=== PATIENT | male | born 1950 | race Caucasian/White ===

== ENCOUNTER 2020-11-11 12:46 | Emergency (ER) | payer BC, SELFPAY ==
--- NOTE | ~2020-11-11 | XR_ITS ---
XR chest 2V DATE: 11/11/2020 14:01 INDICATION: Fever, onset 2 days ago. TECHNIQUE: PA and lateral views COMPARISON: None FINDINGS: Normal heart size. No hilar or mediastinal enlargement. The lungs are moderately hyperinfla lars but clear of infiltrate or consolidation. No pleural effusion or pulmonary vascular congestion or pneumothorax. Included skeletal structures are unremarkable. IMPRESSION: Moderate hyperinflation; no active cardiopulmonary disease Reviewed, dictated and finalized at location [facility]. [employer]
[2020-11-11 13:05] VITALS: BP 123/68; PULSE 64; RESP 12; TEMP 36.9; O2SAT 100
--- NOTE | 2020-11-11 14:00 | ED.URI ---
HPI - URI/Sore Throat General Chief Complaint: Upper Respiratory Infection Stated Complaint: FEVER Source: patient Limitations: no limitations History of Present Illness HPI Narrative: The patient, a non-smoker/occ drinker, presents with fever. Patient states, after uneventful day yesterday eating cookies and wine at supper, the onset of myalgias with headache, fever to 100.3 and fatigue. This is associated with rare dry cough; no sore throat, rash, S OB, sneezing/wheezing, no loss of taste/smell, vomiting/diarrhea, known Covid. Related Data Home Medications Medication Instructions Recorded Confirmed citalopram 40 mg PO DAILY 11/11/20 11/11/20 trazodone 50 mg PO DAILY 11/11/20 11/11/20 Allergies Allergy/AdvReac Type Severity Reaction Status Date / Time No Known Allergies Allergy Unverified 11/11/20 12:53 Review of Systems Review of Systems: Narrative: General/Constitutional: No weight loss, REPORTS fever Eyes: N0: Redness,discharge Ears/Nose/Throat: No: Epistaxis,ear discharge Respiratory: Denies: Hemoptysis Gastrointestinal: No Vomiting, Bleeding-rectal Skin: No Lumps, eruption Neurologic: No Focal Weakness,Sz Hematologic: Denies: Petechiae/Purpura Psychiatric: No: Suicida ideationl All Other Systems: Reviewed and Negative PMFSH Comments At time of signature, agree with nursing past medical, surgical, social and family history. There is no relevant family history pertinent to the presenting complaint Exam Narrative: Exam Narrative: General Appearance: Fatigued appearing [lies on bed] no distress EYE: PERRLA, Conjunctiva clear Ears: External ear normal Nose: Normal nose Mouth/Throat: Normal appearing, Normal lips Neck: Supple Respiratory: Airway patent, No respiratory distress, CTA, decreased BS at bases Cardiovascular: RRR Abdomen: Soft, Non-tender, Musculoskeletal: Full ROM Skin: Warm, Dry Neurological: A&O x3, CN II-X intact Psychiatric: Normal mood, Normal affect Course Vital Signs Vital signs: Vital Signs Temperature 98.4 F 11/11/20 13:05 Pulse Rate 64 11/11/20 13:05 Respiratory Rate 12 11/11/20 13:05 Blood Pressure 123/68 11/11/20 13:05 Pulse Oximetry 100 11/11/20 13:05 Temperature 98.4 F 11/11/20 13:05 Pulse Rate 64 11/11/20 13:05 Respiratory Rate 12 11/11/20 13:05 Blood Pressure 123/68 11/11/20 13:05 Pulse Oximetry 100 11/11/20 13:05 MDM - URI/Sore Throat Lab Data Labs: Lab Results 11/11/20 Range/Units 13:30 POC SARS CoV-2 Ag Negative (Negative) Influenza A Screen Negative Reference Range: Negative Influenza B Screen Negative Reference Range: Negative Discharge Plan Discharge Clinical Impression: Influenza-like illness Patient Disposition: Home, Self-Care Condition: Stable Instructions: Antibiotic Form, Upper Respiratory Infection (ED) Additional Instructions: Decrease Celexa/citalopram to every other day Also use OTC preparations like antifever medicines like Motrin, supplements like vitamin D, zinc, etc. Prescriptions: New azithromycin 250 mg tablet See Rx Instructions .ROUTE .COMPLEX Qty: 6 RF: 0 codeine-guaifenesin 10-100 mg/5 mL liquid 7.5 ml PO Q6H PRN (Reason: cough) Qty: 118 RF: 0 azelastine 137 mcg (0.1 %) aerosol,spray 137 mcg NASAL Q12H Qty: 30 RF: 0 No Action citalopram 40 mg tablet 40 mg PO DAILY RF: 0 trazodone 50 mg tablet 50 mg PO DAILY RF: 0 Follow-up/Referrals: Tory Madrid MD [Other]
== END 2020-11-11 15:10 | disposition home or self-care (01) ==
PROVIDERS: Emergency Provider Emergency Medicine
DX: J11.1 Influenza due to unidentified influenza virus with other respiratory manifestations (principal); Z20.822 Contact with and (suspected) exposure to COVID-19
CPT/HCPCS: 71046; 87426; 87804; 99203; C9803; G0463

== ENCOUNTER 2025-02-07 15:12 | Emergency (ER) | payer BC, SELFPAY ==
[2025-02-07 15:26] VITALS: BP 140/81; PULSE 59; RESP 16; TEMP 36.4; O2SAT 97
--- NOTE | 2025-02-07 15:37 | ED_ITS ---
HPI - Skin/Abscess/Foreign Bdy General Chief complaint: Skin/Abscess/Foreign Body Stated complaint: TICK BITE Time Seen by Provider: 02/07/25 15:36 Source: patient Mode of arrival: ambulatory Limitations: no limitations History of Present Illness HPI narrative: 74 y/o male presented for c/o redness to the right forearm after he removed a tick today. Says the tick may have been embedded for 6 days. He was able to remove the tick by scratching the arm, and he brought the tick with him to clinic. Denies associated fatigue, malaise, myalgia, fever, n/v/d/f/c. Related Data Home Medications ?Medication ?Instructions ?Recorded ?Confirmed ?Last Taken ?Type citalopram 40 mg tablet 40 mg PO DAILY 11/11/20 11/11/20 Unknown History Allergies Allergy/AdvReac Type Severity Reaction Status Date / Time No Known Allergies Allergy Verified 02/07/25 15:16 Review of Systems Review of Systems: CONSTITUTIONAL: Denies body aches, fever, chills, or sweats. EYES: Denies visual changes, redness, or discharge. ENT: Denies rhinorrhea, congestion CARDIOVASCULAR: Denies chest pain, palpitations, or edema. RESPIRATORY: Denies cough or dyspnea. GASTROINTESTINAL: Denies abdominal pain, nausea, vomiting, or diarrhea. SKIN: per HPI MUSCULOSKELETAL: Denies back pain, joint pain, or myalgia. NEUROLOGIC: Denies headache, numbness, tingling, or weakness. PMFSH Comments At time of signature, I have reviewed and agree with nursing past medical, surgical, social and family history unless otherwise noted. Please see nursing chart for further information. There is no relevant family history pertinent to the presenting complaint Exam Narrative: GENERAL: Well-appearing EYES: conjunctivae clear, and EOMI. ENT: Mucous membranes moist. Oropharynx without edema, erythema or lesions. CHEST: Clear to auscultation. HEART: Regular rate and rhythm. SKIN: Warm, dry. Right forearm with 1cm area of dark erythema and surrounding faint erythema distally is irregular approx 6cm diameter. Nontender, no fluctuance or induration. No drainage. NEURO: Alert and oriented x3. Course Course Emergency Course: Patient is aware of diagnosis, understands and agrees to treatment plan. Anticipatory guidance given. Patient agrees to follow-up as directed and is aware of reasons to seek care at the emergency department. Portions of this record may have been created with voice recognition software Level of Care: Express Care Visit Vital Signs Vital signs: Vital Signs Temperature 97.6 F 02/07/25 15:26 Pulse Rate 59 L 02/07/25 15:26 Respiratory Rate 16 02/07/25 15:26 Blood Pressure 140/81 02/07/25 15:26 Pulse Oximetry 97 02/07/25 15:26 Temperature 97.6 F 02/07/25 15:26 Pulse Rate 59 L 02/07/25 15:26 Respiratory Rate 16 02/07/25 15:26 Blood Pressure 140/81 02/07/25 15:26 Pulse Oximetry 97 02/07/25 15:26 Reviewed MDM - Skin/Abscess/Foreign Bdy MDM Narrative Medical decision making narrative: Discussed physical exam findings c/w erythema after he removed a tick. Will send 10 day course doxy as tick had been present for about 6 days. Advised sup portive measures and signs/symptoms to go to the ER. Pt is appropriate for outpt treatment and f/u. Instructed patient to go to nearest ER immediately for any worsening symptoms including but not limited to: fever, spreading rash, pain, sore throat, headache, malaise, chest pain, trouble breathing, or any symptoms concerning to the patient. Differential Diagnosis Differential diagnosis: Likely abscess of skin or subcutaneous tissue, viral exanthem, dermatophytosis, urticaria, herpes zoster, cellulitis, eczema, insect bites, impetigo and contact dermatitis Discharge Plan Discharge Clinical Impression: Tick bite Qualifiers: Encounter type: initial encounter Site of tick bite: forearm Laterality: right Qualified Code(s): S50.861A - Insect bite (nonvenomous) of right forearm, initial encounter; W57.XXXA - Bitten or stung by nonvenomous insect and other nonvenomous arthropods, initial encounter Patient Disposition: Home Condition: Stable Instructions: Antibiotic Form, Tick Bite (ED) Additional Instructions: Take medication as directed Keep the area clean and dry. For 30 days following the tick bite Watch for: Signs of infection including Increased pain, swelling, warmth, bite red streaks bleeding from the bite or pus draining from the bite. Fever. New rash, especially a bull?s eye appearance which is a characteristic of Lyme disease, or any rash that expands from the site. Flu like symptoms including fevers, chills, body aches, fatigue or headache. If you think the tick was attached for over 30 hours, especially deer tick, go to the emergency room Minor redness or swelling at the site of the tick bite is often a normal reaction and should subside within a few days. Follow up with your primary care provider as needed in 1 week Go to the ER for worsening symptoms or concerns Patient Language: Kinyarwanda Prescriptions: New doxycycline hyclate 100 mg tablet 100 mg PO BID 10 Days Qty: 20 0RF No Action citalopram 40 mg tablet 40 mg PO DAILY azelastine 137 mcg (0.1 %) aerosol,spray 137 mcg NASAL Q12H Qty: 30 0RF Rx Instructions: administer into each nostril Follow-up/Referrals: [facility]ory [Other] Time of Disposition: 15:47
== END 2025-02-07 15:53 | disposition home or self-care (01) ==
PROVIDERS: Emergency Provider Nurse Practitioner Family
DX: S50.861A Insect bite (nonvenomous) of right forearm, initial encounter (principal); W57.XXXA Bitten or stung by nonvenomous insect and other nonvenomous arthropods, initial encounter
CPT/HCPCS: 99213; G0463